=== PATIENT | male | born 1990 | race Caucasian/White ===

== ENCOUNTER 2025-10-21 16:18 | Outpatient (AMB) | payer BC, SELFPAY ==
--- NOTE | 2025-10-21 16:28 | MHC.PC.OV ---
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 Intake Note: New patient presents with wrist pain, ear issues, elbow and back issues Head Orthopedic Team Physician Required: No Accompanied by: Self / Same As Patient Allergies No Known Allergies Allergy (Verified 10/21/25 16:32) Tobacco use date assessed: 10/21/25 Dental Screening Dental Screen Date: 10/21/25 Did you have a dental visit in the last 12 months?: Yes Did you have a dental problem in the last 6 months where you did not have access to dental care?: No Was dental information given to patient?: Patient has dentist HPI HPI Comments History of Present Illness Details History of Present Illness The patient is a 35 year old individual presenting for evaluation of chronic ear issues and to establish a management plan for chronic low back pain. Chronic Low Back Pain: The patient has a 19-year history of lower back issues, which began at age 15. The issues began after a meniscus repair surgery, after which the patient began lifting with the back instead of the legs. The patient experiences painful episodes once or twice a year, during which the patient's hips feel misaligned. These episodes take at least two weeks to resolve with stretching. A previous lay-down MRI revealed a possible compressed disc. The patient has seen a chiropractor before but has never received physical therapy. During these flare-ups, it is very difficult to urinate or defecate. Chronic Ear Issues and Sinusitis: The patient has a history of ear issues since childhood, including ruptured eardrums and two tympanostomy tube placements, with the last set removed in college. The patient also has a history of sinus infections and earaches, although these have been well-managed for the past six years. For the last four years, the patient has experienced a constant ache in the right ear. This pain occasionally flares, radiating down to the jaw and up into the scalp, and is aggravated by chewing or sleeping on that side. The patient noticed some swelling on the right side under the jaw about three weeks ago. The patient has been taking ibuprofen for the ear pain. Surgical History: - Tympanostomy tube placement twice - Meniscus repair at age 14 or 15 Medications: - Multivitamin, taken infrequently - Ibuprofen, taken as needed for ear pain and suspected carpal tunnel symptoms Social History: - Occupation: The patient works in [employer], which is described as a sedentary role. 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 - Substance Use: The patient denies smoking or drinking alcohol and reports very rare recreational drug use. Diagnostic Results: - Imaging: A prior lay-down MRI of the back showed possible compression at an unspecified lumbar level. - Imaging: A prior CT scan of the kidneys found some cysts, which were not addressed further. Past Medical History - Chronic low back pain since age 15 - History of recurrent otitis and sinusitis since childhood - History of tympanic membrane rupture - History of torn meniscus - History of renal cysts noted on a past CT scan - Suspected carpal tunnel syndrome Health Maintenance - A comprehensive blood panel including CBC, CMP, thyroid panel, HbA1c, hepatitis panel (B and C), HIV, syphilis, B12, folate, and vitamin D has been ordered. - A follow-up appointment is scheduled in two weeks to review lab results and manage chronic conditions. [facility] Medical History (Updated 10/24/25 @ 11:56 by Oral Man MD) Chronic sinusitis Chronic right ear pain Chronic lower back pain Surgical History (Updated 10/21/25 @ 16:49 by Oral Man MD) History of tympanostomy tube placement Hx of tonsillectomy History of surgical removal of meniscus of knee Family History (Updated 10/21/25 @ 16:36 by Duran Alvarez CMA) Maternal Uncle Substance abuse Mother Cancer Diabetes History of multiple strokes Maternal Grandmother Cancer Maternal Grandfather Cancer Paternal Grandmother Cancer Father Heart attack Social History (Updated 10/21/25 @ 16:37 by Duran Alvarez CMA) Housing: House Alcohol intake: current Comment: rarely Patient Tobacco Use Status: Never used Tobacco e-Cigarette/Vaping Use: Never Used Second Hand Smoke Exposure: No service: No Current occupational status: employed 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 1. Little interest or pleasure in doing things: several days 2. Feeling down, depressed, or hopeless: several days 3. Trouble falling or staying asleep, or sleeping too much: not at all 4. Feeling tired or having little energy: not at all 5. Poor appetite or overeating: not at all 6. Feeling bad about yourself - or that you are a failure or have let yourself or your family down: not at all 7. Trouble concentrating on things, such as reading the newspaper or watching television: several days 8. Moving or speaking so slowly that other people could have noticed. Or the opposite - being so fidgety or restless that you have been moving around a lot more than usual: not at all 9. Thoughts that you would be better off or of hurting yourself in some way: not at all Total score: 3 Depression Screening Interpretation: Negative Depression Screening Done: Yes 31139 - PHQ-9 Billing: Yes Source: Developed by Drs. Akash Fischer, Kendy Harvey, Vipul Medina and colleagues, with an educational shaun from [employer]. Thrive Questionnaire Date Thrive assessed: 10/21/25 I am a: Patient What is your living situation today?: I have a steady place to live Within the past 12 months, did the food you bought not last and you didn't have the money to get more?: Never true Within the past 12 months, did you worry whether your food would run out before you got money to buy more?: Sometimes True Do you have trouble paying for medicines?: No Do you have trouble getting transportation to medical appointments?: No Do you have trouble paying your heating and electricity bill?: No Do you have trouble taking care of your child, family member or friend?: No Are you currently unemployed and looking for a job?: No Are you interested in more education?: Yes Please select the resources that you would like help with: None Currently or been in a relationship where the following occur: No concerns reported THRIVE Score: 1 AUDIT C Alcohol Use Questionnaire (AUDIT-C) 1. How often do you have a drink containing alcohol?: Monthly or less 2. How many drinks containing alcohol do you have on a typical day when you are drinking?: 1 or 2 3. How often do you have six or more drinks on one occasion?: Never Total Score: 1 ANYI-7 AMB Questionnaire ANYI-7 Date ANYI - 7 assessed: 10/21/25 Feeling nervous, anxious, or on edge: 1 = Several days Not being able to stop or control worryin = Several days Worrying too much about different things: 0 = Not at all Trouble relaxin = Several days Being so restless that it is hard to sit still: 1 = Several days Becoming easily annoyed or irritable: 1 = Several days Feeling afraid as if something awful might happen: 1 = Several days Total ANYI-7 score (0-4 normal; 5-9 mild; 10-14 moderate; 15-21 severe): 6 Source: Developed by Drs. Akash Fischer, Kendy Harvey, Vipul Medina and colleagues, with an educational shaun from [employer]. ANYI-7 Assessment Billing ANYI-7 Assessment Tool: ANYI-7 Assessment 45209 Review of Systems Narrative Review of Systems - Constitutional: Denies fevers and chills. - Ears: Reports a constant ache in the right ear for four years, with occasional flares of pain radiating to the jaw and scalp. - Neck/Face: Reports swelling on the right side under the jaw for three weeks. - Musculoskeletal: Reports chronic low back pain with intermittent, severe flare-ups. - Genitourinary: Reports difficulty with urination when back issues are present. - Gastrointestinal: Reports difficulty with defecation when back issues are present. - Neurological: Denies paresthesia that consistently travels down the leg. 10-point ROS reviewed and negative except as noted in HPI Physical exam (Primary Care) Vital Signs: Last Vital Signs Temp 98.2 F 10/21/25 16:37 Pulse 67 10/21/25 16:37 Resp 16 10/21/25 16:37 BP 122/59 L 10/21/25 16:37 Pulse Ox 96 10/21/25 16:37 Oxygen Delivery Method Room Air 10/21/25 16:37 BMI result Body Mass Index 23.7 Tobacco/Smoking Status: Tobacco use Status Tobacco use date assessed 10/21/25 10/21/25 16:39 Patient Tobacco Use Status Never used Tobacco 10/21/25 16:39 e-Cigarette/Vaping Use Never Used 10/21/25 16:39 PHQ-9: PHQ-9 Score PHQ-9: Total score 3 10/21/25 16:32 Depression Screening Interpretation: Negative Thrive Assessment: Date of Thrive Assessment Date Thrive assessed 10/21/25 10/21/25 16:32 Currently or been in a relationship where the following occur: No concerns reported Narrative Physical Exam General: Well-appearing, in no acute distress. Vital signs: Within normal limits. HEENT: Normocephalic, atraumatic. PERRLA, EOMI. Conjunctiva clear, sclera anicteric. Oropharynx clear, mucous membranes moist. TMs intact bilaterally, with noted scarring on the tympanic membrane. Swelling noted under the right jaw. Neck: Supple, no lymphadenopathy, no thyromegaly, no JVD or carotid bruits. Cardiovascular: RRR, normal S1/S2, no murmurs, rubs, or gallops. Peripheral pulses 2+ and symmetric. No edema. Respiratory: Lungs clear to auscultation bilaterally, no wheezes, rales, or rhonchi. Normal effort. Abdomen: Soft, non-tender, non-distended. Normoactive bowel sounds. No hepatosplenomegaly, no masses. MSK: Full range of motion, no joint swelling or deformity. Normal gait. Reports chronic low back pain with occasional pain radiating down the left leg. Skin: Warm, dry, intact. No rashes, lesions, or pallor. Neuro: Alert and oriented x3. Cranial nerves II-XII intact. Strength 5/5 throughout. Sensation intact. Reflexes 2+ symmetric. Normal coordination and gait. Psych: Appropriate mood and affect. Normal judgment and insight. Coding Level of Care Code New Pt Level 4 (73568) Diagnoses Chronic right ear pain H92.01; G89.29 History of tympanostomy tube placement Z96.22 Chronic lower back pain M54.50; G89.29 Chronic sinusitis J32.9 Additional Codes ANYI-7 Assessment Billing - ANYI-7 Assessment Tool: ANYI-7 Assessment 77294 ([id number]) PHQ-9 - 30027 - PHQ-9 Billing: Yes ([id number]) Assessment & Plan Assessment & Plan (1) Chronic right ear pain: Code(s): H92.01 - Otalgia, right ear; G89.29 - Other chronic pain Category: Medical (2) History of tympanostomy tube placement: Code(s): Z96.22 - Myringotomy tube(s) status Category: Medical (3) Chronic lower back pain: Code(s): M54.50 - Low back pain, unspecified; G89.29 - Other chronic pain Category: Medical (4) Chronic sinusitis: Code(s): J32.9 - Chronic sinusitis, unspecified Category: Medical Plan Consent The plan of care, including comprehensive blood work, a referral to physical therapy for chronic low back pain, and a referral to an ENT specialist for chronic ear issues, was discussed with the patient. The patient verbally agreed with the proposed plan. Patient was informed and verbally consented to the use of an ambient scribe for clinic note documentation during this visit. Plan 1. Chronic Low Back Pain - A referral will be placed for physical therapy for evaluation and treatment, with a focus on strengthening exercises. - Prior imaging records will be reviewed. - The patient is encouraged to increase movement and exercise, as a sedentary lifestyle may be a contributing factor. - The plan is to start with conservative management; if this fails, a referral to an orthopedic utilization specialist or pain management, and potentially a new MRI, will be considered. 2. Chronic Right Otalgia And Sinusitis - A referral will be placed for an Ear, Nose, and Throat (ENT) specialist for a full evaluation, given the chronic nature of the symptoms and history. - The patient was advised to use Tylenol or ibuprofen as needed for pain. - The patient was instructed to return or seek care if fevers or chills develop, at which point antibiotics would be considered. Discussion Notes I discussed the plan for managing the chronic low back pain, starting with conservative measures including a referral to physical therapy to focus on strengthening, given the sedentary nature of the patient's job. I explained that we would escalate care to specialists like an orthopedic utilization specialist or pain management, or consider further imaging like an MRI, if these initial measures do not provide relief. For the chronic ear pain and history of sinusitis, I recommended a referral to an ENT specialist for a complete evaluation. I also explained the plan to order a comprehensive blood panel for a health screening, as it has been some time since the patient's last blood work. I provided the patient with a paper referral for the ENT to empower the patient to find a sooner appointment and instructed the patient to return for a follow-up in two weeks to review the lab results. The patient understood and agreed with the proposed plan of care. Patient Instructions - Our office's physical therapy department will call you to schedule an appointment to work on strengthening your back. - You have a referral to see an Ear, Nose, and Throat (ENT) doctor. I have given you the paper referral so you can call their office to schedule an appointment for your ear pain. - Please go to the lab to have your blood drawn. You can come in any morning from 9:00 AM onward. - You can take Tylenol or ibuprofen for pain as needed. - If you develop any fever or chills, please contact our office, as we may need to start antibiotics. - Please schedule a follow-up appointment in two weeks to discuss your lab results. Medical Decision Making The patient is a 35-year-old individual presenting with two primary chronic complaints: low back pain and right ear pain. The low back pain has been present for 19 years, seems mechanical in nature, and is likely exacerbated by a now sedentary lifestyle after years of physically demanding work. A prior MRI noted possible compression, but the patient has never had formal physical therapy. Therefore, the initial and most appropriate step is conservative management with a focus on core strengthening and mobility, hence the referral to physical therapy. An MRI and specialist referral are reserved if physical therapy fails. The right ear pain is chronic and associated with a history of recurrent ear infections, tube placements, and sinusitis. The recent onset of local swelling is also noted. Given this complex history, specialist evaluation by an ENT is warranted to determine the etiology, which is currently unclear. The patient is currently afebrile and does not require antibiotics, with a plan for as-needed analgesics and return precautions. Comprehensive lab work is ordered for a baseline health assessment, as the patient has not had labs done recently. A follow-up in two weeks will allow for review of these results and assessment of progress with the initial treatment plan. Total Time Statement 30 min Total time spent caring for the patient today includes pre-visit chart review, documentation, review of laboratory and diagnostic imaging results, medication reconciliation, medically necessary evaluation, counseling on diagnoses, care coordination, ordering appropriate tests and medications, review of tests performed by other providers, reporting test results to the patient, and communication with other healthcare providers. Orders: Orders Complete Blood Count Auto Diff 10/22/25 Z13.9 - Encounter for screening, unspecified Comprehensive Met. Panel 10/22/25 Z13.9 - Encounter for screening, unspecified HIV Ab/Ag 10/22/25 Z13.9 - Encounter for screening, unspecified Magnesium 10/22/25 Z13.9 - Encounter for screening, unspecified Vitamin D 1,25 dihydroxy 10/22/25 Z13.9 - Encounter for screening, unspecified Hepatitis B Surface Antibody 10/22/25 Z13.9 - Encounter for screening, unspecified Hepatitis B Surface Antigen 10/22/25 Z13.9 - Encounter for screening, unspecified Syphilis Screen 10/22/25 Z13.9 - Encounter for screening, unspecified Hepatitis C Antibody 10/22/25 Z13.9 - Encounter for screening, unspecified TSH reflex Free T4 10/22/25 Z13.9 - Encounter for screening, unspecified UA CC w/rflx Micro + Cult 10/22/25 Z13.9 - Encounter for screening, unspecified Lipid Panel 10/22/25 Z13.9 - Encounter for screening, unspecified Vitamin B12 and Folate 10/22/25 Z13.9 - Encounter for screening, unspecified Hemoglobin A1c 10/22/25 Z13.9 - Encounter for screening, unspecified PT Evaluation and Treatment 10/21/25 G89.29 - Other chronic pain, M54.50 - Low back pain, unspecified Referrals Ear/Nose/Throat Referral G89.29 - Other chronic pain, H92.01 - Otalgia, right ear, Z96.22 - Myringotomy tube(s) status
[2025-10-21 16:37] VITALS: BP 122/59; PULSE 67; RESP 16; TEMP 36.8; O2SAT 96; BMI 23.7
--- OUTSIDE RECORDS SUMMARY | 2025-10-21 18:56 | XMS_ITS | Clinical Summary ---
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 Recent with Prison Cancer Maternal Grandfather Vishal Lui Brain C ancer Mental illness Maternal Grandmother Alem Lui Demen tia Cancer Mother Laura Guallpa Ovarian Cancer Paternal Grandfather Dawson Guallpa Lung Ca ncer Depression Paternal Grandmother Molly Lewis r Depression over 6 years with passing of . Relation Name Status Comments Father Dawson Guallpa Jr. Maternal Grandfather Vishal Lui Maternal Grandmother Alem Lui Mother Laura Guallpa Paternal Grandfather Dawson Guallpa Paternal Grandmother Molly Shieldsnilesh Social History Tobacco Use Types Packs/Day Years Used Date Smoking Tobacco: Light Smoker Cigarettes Started: 02/17/2017 Smokeless Tobacco: Never Comments:It's about 6 cigare ttes per year. Alcohol Use Standard Drinks/Week Comments Yes 0 (1 standard drink = 0.6 oz pur e alcohol) Intimate Partner Violence Answer Date R ecorded Insults You Not on file 03/03/2021 Threatens You Not on file 03/03/2021 Screams at You Not on file 03/03/2021 Physically Hurt Not on file 03/03/2021 Intimate Partner Violence Score Not on file 03/03/2021 Stress Answer Date Recorded Stress in your Life 0 12/27/2020 Dealing with Stress Not on file 12/27/2020 Sex and Gender Information Value Date Recorded Sex Assigned at Not on file Legal Sex Male 12:06 AM CDT Gender Identity Not on file Sexual Orientation Not on file Last Filed Vital Signs Vital Sign Reading Time Taken Comments Blood Pressure 119/79 04/22/2019 4:15 PM CDT Pulse 69 04/22/2019 4:15 PM CDT Temperature 36.5 C (97.7 F) 04/22/2019 4:15 PM CDT Respiratory Rate 16 04/22/2019 4:15 PM CDT Oxygen Saturation 98% 04/22/2019 4:15 PM CDT Inhaled Oxygen Concentration - - Weight 82.1 kg (181 lb 1.6 oz) 04/22/2019 4:15 P M CDT Height 188 cm (6' 2 ) 04/22/2019 4:15 PM CDT Body Mass Index 23.25 04/22/2019 4:15 PM CDT Plan of Treatment Health Maintenance Due Date Last Done Comments Dental Cleaning/Exam 1988 HPV Immunization (1 - Male 3 -dose series) 2003 Hepatitis B Immunization (1 of 3 - 19+ 3-dose series) 2007 Tetanus Diphtheria and Pertu ssis Immunization (1 - Tdap) 2007 Covid-19 Immunization (1 - 2 season) 2025 Influenza Immunization (#1) 2025 08/19/2019 HIB Immunization Aged Out No longer e ligible based on patient's age to complete this topic Hepatitis A Immunization Aged Out No longer eligible based on patient's age to complete this topic Pneumococcal Immunization Aged Out No longer eligible based on patient's age to complete this topic Polio Immunization Aged Out No longer eligible based on patient's age to complete this topic Varicella Immunization Aged Out No lo nger eligible based on patient's age to complete this topic
== END 2025-10-21 17:03 | disposition home or self-care (01) ==
LOC: HO.HMCFMS 16:19
PROVIDERS: Visit Provider Student in an Organized Health Care Education/Training Program
DX: H92.01 Otalgia, right ear (principal); G89.29 Other chronic pain; Z96.22 Myringotomy tube(s) status; M54.50 Low back pain, unspecified; J32.9 Chronic sinusitis, unspecified

== ENCOUNTER → 2025-10-21 16:18 | Outpatient (BNVA) | payer BC, SELFPAY | PROVIDERS: Visit Provider Student in an Organized Health Care Education/Training Program | DX: Z13.31 Encounter for screening for depression (principal); Z13.39 Encounter for screening examination for other mental health and behavioral disorders | CPT/HCPCS: 96127 ==

== ENCOUNTER 2025-10-22 13:22 | Outpatient (REF) | payer BC, SELFPAY ==
[2025-10-22 17:45] LABS: MANUAL DIFF FLAG NO
[2025-10-22 17:54] LABS: Appearance Urine Clear; Glucose Urine UA Negative (Negative); PH 8.5 (5.0-9.0); Specific Gravity - Urine 1.015 (1.005-1.025)
[2025-10-22 18:06] LABS: Hematocrit 44.6 % (42.0-52.0); Hemoglobin 15.0 g/dl (14.0-18.0); Imm Gran Abs Auto 0.02 X10*3/uL (0.00-0.03); Imm Gran Pct Auto 0.3 % (0.0-0.4); Lymphocytes Absolute Auto 2.6 X10*3/uL (1.2-4.9); Mean Corpuscular HGB Conc 33.6 g/dl (31.0-36.0); Mean Corpuscular Hemoglobin 29.5 pg (27.0-33.0); Mean Corpuscular Volume 87.8 fL (80.0-98.0); NRBC Abs Auto 0.000 X10*3/uL (0.0-0.012); NRBC Pct Auto 0.0 /100WBC (0.0-0.2); Platelet Count 271 X10*3/uL (160-400); Red Blood Count 5.08 X10*6/uL (4.60-5.80); White Blood Count 6.7 X10*3/uL (4.8-10.8)
[2025-10-22 18:43] LABS: Alanine Aminotransferase 38 U/L (0-40); Albumin Level 5.2 g/dL (3.5-5.0); Alkaline Phosphatase 44 U/L (39-117); Anion Gap 13 (12-20); Aspartate Amino Transferase 27 U/L (5-37); Blood Urea Nitrogen 18 mg/dL (9-16); Calcium 9.5 mg/dL (8.4-10.2); Carbon Dioxide 25 mmol/L (22-29); Chloride 107 mmol/L (96-108); Cholesterol 260 mg/dL (<200); Estimated Glomerular Filt Rate > 60; HDL Cholesterol 48 mg/dL (>40); Magnesium 2.3 mg/dL (1.6-2.6); Potassium 4.0 mmol/L (3.3-5.1); Sodium 141 mmol/L (135-145); Total Protein 7.5 g/dL (6.5-8.0); Triglycerides 216 mg/dL (<150)
[2025-10-22 18:56] LABS: Folate 9.8 ng/mL (> or = 4.0); Vitamin B12 322 pg/mL (200-900)
[2025-10-23 05:51] LABS: HBS Num1 329.25 mIU/mL (0-7.99); HBsAGNum1 0.39 S/CO (0.00-0.99); HIV Num 1 0.05 S/CO (0.00-0.99); Hepatitis B Surface Antigen Negative (Negative); ~HepC Num1 0.08 S/CO (0.00-0.79); ~Hepatitis B Surface Antibody REACTIVE (Nonreactive); ~Hepatitis C Antibody Nonreactive (Nonreactive)
[2025-10-23 05:59] LABS: Syphilis Screen Nonreactive (Nonreactive)
[2025-10-26 13:28] LABS: VITAMIN D (1,25 OH) D3 57 pg/mL; Vit D (1,25-Dihydroxy) Total 57 pg/mL (18-72); Vitamin D (1,25 OH) D2 <8 pg/mL
== END 2025-10-22 13:23 | disposition home or self-care (01) ==
LOC: HO.HKASLDS 13:22
PROVIDERS: PCP Student in an Organized Health Care Education/Training Program; Visit Provider Student in an Organized Health Care Education/Training Program
DX: Z11.4 Encounter for screening for human immunodeficiency virus [HIV] (principal); Z11.3 Encounter for screening for infections with a predominantly sexual mode of transmission; Z13.0 Encounter for screening for diseases of the blood and blood-forming organs and certain disorders involving the immune mechanism; Z13.1 Encounter for screening for diabetes mellitus; Z13.6 Encounter for screening for cardiovascular disorders; Z13.21 Encounter for screening for nutritional disorder
CPT/HCPCS: 36415; 80053; 80061; 81003; 82607; 82652; 82746; 83036; 83735; 84443; 85025; 86706; 86780; 86803; 87340; 87389

== ENCOUNTER 2025-11-06 15:35 | Outpatient (AMB) | payer BC, SELFPAY ==
--- NOTE | 2025-11-06 15:45 | MHC.PC.OV ---
Vital Signs 11/06/25 15:48 Height 6 ft 1.75 in Weight 186 lb BMI 24.0 BP 114/67 Blood Pressure Location Lt brachial Position Sitting Respiration 16 Pulse 76 Pulse Source Pulse Oximeter Temp 98.3 F Temp Source Oral Pulse Oximetry (%) 96 Oxygen Delivery Method Room Air Intake Visit Reasons: 2 wk f/u- lab review Intake Note: Patient prsent for lab review. 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 Mixed hyperlipidemia: This is a new finding based on recent lab work, which revealed elevated lipids. His total cholesterol was 260 mg/dL, LDL cholesterol was 169 mg/dL, and triglycerides were 216 mg/dL. In discussing his diet, the patient reports that he consumes cheese. Social History: - Diet: The patient reports his diet consists of cheese. Diagnostic Results: - Complete Blood Count: White blood cells, red blood cells, hemoglobin, hematocrit, and platelets are normal. - Comprehensive Metabolic Panel: Sodium, potassium, chloride, renal function, glucose, hemoglobin A1c, calcium, magnesium, and liver function are normal. - Albumin: Normal. - Lipid Panel: Triglycerides were elevated at 216 mg/dL (normal <150 mg/dL), total cholesterol was elevated at 260 mg/dL (normal <200 mg/dL), and LDL cholesterol was elevated at 169 mg/dL (normal <100 mg/dL). - HDL cholesterol was normal at >40 mg/dL. - Vitamin B12, vitamin D, folate, and thyroid levels were normal. - Urinalysis: Normal. - Infectious Disease Screening: Hepatitis B, hepatitis C, HIV, and syphilis were negative. Past Medical History Health Maintenance - The patient's lab results were reviewed, showing normal CBC, metabolic panel, and negative infectious disease screens for hepatitis B, hepatitis C, HIV, and syphilis. - His glucose and A1c levels were normal, with no evidence of prediabetes or diabetes. - Discussion included elevated triglycerides (216 mg/dL), total cholesterol (260 mg/dL), and LDL cholesterol (169 mg/dL). - Counseled on dietary modifications to lower cholesterol and triglycerides, including reducing intake of cheese and sweetened drinks. - Patient was provided with educational materials on how to lower LDL cholesterol. [facility] Medical History (Updated 11/07/25 @ 10:07 by Oral Man MD) Recurrent acute sinusitis GERD (gastroesophageal reflux disease) Panic disorder Agoraphobia Generalized anxiety disorder Seborrheic keratosis Tinea corporis Tinea barbae Hidradenitis Pectus excavatum Ocular migraine TMJ syndrome Bulging lumbar disc Spondylosis Chronic radicular low back pain History of low back pain Chronic sinusitis Chronic right ear pain Chronic lower back pain Surgical History (Updated 11/07/25 @ 10:03 by Oral Man MD) History of arthroscopy of left knee History of tympanostomy tube placement Hx of tonsillectomy History of surgical removal of meniscus of knee Family History Maternal Uncle Substance abuse Mother Cancer Diabetes History of multiple strokes Maternal Grandmother Cancer Maternal Grandfather Cancer Paternal Grandmother Cancer Father Heart attack Social History (Updated 11/06/25 @ 15:48 by Duran Alvarez CMA) Housing: House Alcohol intake: current Comment: rarely Patient Tobacco Use Status: Never used Tobacco e-Cigarette/Vaping Use: Never Used Second Hand Smoke Exposure: No service: No Current occupational status: employed 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: No Do you have trouble paying your heating and electricity bill?: No Do you have trouble taking care of your child, family member or friend?: No Are you currently unemployed and looking for a job?: No Are you interested in more education?: Yes Currently or been in a relationship where the following occur: No concerns reported THRIVE Score: 1 ANYI-7 AMB Questionnaire ANYI-7 Date ANYI - 7 assessed: 10/21/25 Source: Developed by Drs. Akash Fischer, Kendy Harvey, Vipul Medina and colleagues, with an educational shaun from [employer]. Review of Systems Narrative Review of Systems - General: Denies any current questions or concerns. 10-point ROS reviewed and negative except as noted in HPI Physical exam (Primary Care) Vital Signs: Last Vital Signs Temp 98.3 F 11/06/25 15:48 Pulse 76 11/06/25 15:48 Resp 16 11/06/25 15:48 BP 114/67 11/06/25 15:48 Pulse Ox 96 11/06/25 15:48 Oxygen Delivery Method Room Air 11/06/25 15:48 BMI result Body Mass Index 24.0 Tobacco/Smoking Status: Tobacco use Status Tobacco use date assessed 10/21/25 11/06/25 15:46 Patient Tobacco Use Status Never used Tobacco 11/06/25 15:48 e-Cigarette/Vaping Use Never Used 11/06/25 15:48 Thrive Assessment: Date of Thrive Assessment Date Thrive assessed 10/21/25 11/06/25 15:46 Currently or been in a relationship where the following occur: No concerns reported Narrative Physical Exam General: Well-appearing, in no acute distress. Vital signs: Blood pressure today looks great. HEENT: Normocephalic, atraumatic. PERRLA, EOMI. Conjunctiva clear, sclera anicteric. Oropharynx clear, mucous membranes moist. TMs intact bilaterally. Neck: Supple, no lymphadenopathy, no thyromegaly, no JVD or carotid bruits. Cardiovascular: RRR, normal S1/S2, no murmurs, rubs, or gallops. Peripheral pulses 2+ and symmetric. No edema. Respiratory: Lungs clear to auscultation bilaterally, no wheezes, rales, or rhonchi. Normal effort. Abdomen: Soft, non-tender, non-distended. Normoactive bowel sounds. No hepatosplenomegaly, no masses. MSK: Full range of motion, no joint swelling or deformity. Normal gait. pectus excavatum Skin: Warm, dry, intact. No rashes, lesions, or pallor. Neuro: Alert and oriented x3. Cranial nerves II-XII intact. Strength 5/5 throughout. Sensation intact. Reflexes 2+ symmetric. Normal coordination and gait. Psych: Appropriate mood and affect. Normal judgment and insight. Coding Level of Care Code Est Pt Level 3 (41672) Add On Problem Visit Only Diagnoses Dyslipidemia E78.5 Pectus excavatum Q67.6 Assessment & Plan Assessment & Plan (1) Dyslipidemia: Code(s): E78.5 - Hyperlipidemia, unspecified Category: Medical (2) Pectus excavatum: Code(s): Q67.6 - Pectus excavatum Category: Medical Plan Consent Patient was informed and verbally consented to the use of an ambient scribe for clinic note documentation during this visit. Plan 1. Mixed Hyperlipidemia - The patient's lab results showed elevated triglycerides at 216 mg/dL, total cholesterol at 260 mg/dL, and LDL cholesterol at 169 mg/dL. - The patient was counseled that elevated triglycerides are often caused by sweetened drinks and sodas, and values above 500 increase the risk for pancreatitis. - He was advised to reduce intake of foods that can raise cholesterol, such as cheese. - Educational materials on how to lower LDL cholesterol will be provided. - Advised that dietary changes could lead to improvements in these numbers within six months. Discussion Notes I reviewed the patient's lab results with him, noting his complete blood count, metabolic panel, and infectious disease screenings were all normal. I discussed his elevated lipid panel, which included triglycerides of 216 mg/dL, total cholesterol of 260 mg/dL, and an LDL of 169 mg/dL. I explained that while his triglycerides do not pose a current risk for cardiovascular issues, levels above 500 can increase the risk for pancreatitis. We discussed dietary contributors, and I advised him to reduce his intake of cheese to help lower his LDL and to avoid sweetened drinks to lower his triglycerides. I informed him that I would provide educational materials on a low-cholesterol diet and that we could expect to see changes in his lab values in six months with dietary modification. The patient stated he had no questions or concerns. Patient Instructions - Your lab results show high levels of triglycerides and cholesterol. - To help lower your triglycerides, try to cut down on sweetened drinks and sodas. - To lower your bad cholesterol (LDL), you should reduce how much cheese you eat. - You can search online for tips on how to lower your bad cholesterol. - You will be given some reading material with information on lowering your cholesterol. - With these diet changes, your numbers should improve, and we will recheck them in about six months. Medical Decision Making The patient is a 35-year-old male who presented for a review of his laboratory results. The findings were significant for mixed hyperlipidemia, with a total cholesterol of 260 mg/dL, LDL of 169 mg/dL, and triglycerides of 216 mg/dL. Other metabolic markers, including glucose, A1c, and panels for renal and liver function, were normal, ruling out concurrent diabetes or organ dysfunction. Given his age and the absence of other comorbidities, the primary intervention is therapeutic lifestyle change. The patient was counseled on dietary modifications, specifically reducing cheese to lower LDL and avoiding sweetened beverages to lower triglycerides. The risks associated with hypertriglyceridemia, such as pancreatitis at levels above 500 mg/dL, were explained, though his current level is not acutely dangerous. The plan is to provide patient education and re-evaluate his lipid panel in six months to assess the efficacy of these dietary changes before considering pharmacotherapy. Total Time Statement 20 min Total time spent caring for the patient today includes pre-visit chart review, documentation, review of laboratory and diagnostic imaging results, medication reconciliation, medically necessary evaluation, counseling on diagnoses, care coordination, ordering appropriate tests and medications, review of tests performed by other providers, reporting test results to the patient, and communication with other healthcare providers.
[2025-11-06 15:48] VITALS: BP 114/67; PULSE 76; RESP 16; TEMP 36.8; O2SAT 96; BMI 24.0
--- OUTSIDE RECORDS SUMMARY | 2025-11-06 16:35 | XMS_ITS | Clinical Summary ---
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 Recent with [facility] Cancer Maternal Grandfather Vishal Lui Brain C [...]
== END 2025-11-06 16:07 | disposition home or self-care (01) ==
LOC: HO.HMCFMS 15:36
PROVIDERS: PCP Student in an Organized Health Care Education/Training Program; Visit Provider Student in an Organized Health Care Education/Training Program
DX: E78.5 Hyperlipidemia, unspecified (principal); Q67.6 Pectus excavatum